=== PATIENT | female | born 1980 | race Caucasian/White ===

== ENCOUNTER 2019-06-14 09:25 | Outpatient (CLI) | payer OTHER ==
[~2019-06-14 09:25] MED LIST: DOCU-131 PO; IBUP-1222 PO; OXYC-302 PO
== END 2019-06-14 23:59 | disposition home or self-care (01) ==
LOC: CFH 09:25
PROVIDERS: ATTEND Clinical Nurse Specialist Women's Health
DX: R92.2 Inconclusive mammogram (principal); R92.1 Mammographic calcification found on diagnostic imaging of breast
CPT/HCPCS: 76642; 77066; G0279

== ENCOUNTER → 2021-01-10 | Outpatient (CLI) | payer OTHER ==
[~2021-01-10] MED LIST changes: -OXYC-302 PO; +OXYC1TAB14 PO
== END | disposition home or self-care (01) ==
LOC: CFH 15:34
PROVIDERS: ATTEND Obstetrics & Gynecology
DX: R60.0 Localized edema (principal)

== ENCOUNTER 2021-01-17 11:01 | Emergency (ER) | payer OTHER ==
[~2021-01-17] VITALS: Ht 177.8 cm; Wt 91.8 kg
--- NOTE | 2021-01-17 11:18 | NUR ---
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
[2021-01-17 11:58] LABS: BASOPHILS % (AUTO) 0 % (0-1); EOSINOPHILS % (AUTO) 0 % (1-7); LYMPHOCYTES % (AUTO) 14 % (22-44); MEAN CORPUSCULAR HGB CONC 34.5 g/dL (32.4-35.8); MEAN PLATELET VOLUME 8.2 fL (7.4-10.4); MONOCYTES % (AUTO) 7 % (2-9); NEUTROPHILS % (AUTO) 79 % (42-75); PLATELET COUNT 173 x10^3/uL (130-400); RED BLOOD COUNT 4.73 x10^6/uL (3.82-5.3); RED CELL DISTRIBUTION WIDTH 13.8 % (9.6-15.2)
[2021-01-17 12:33] LABS: ANION GAP 8 mmol/L (5-15); CALCIUM 9.1 mg/dL (8.5-10.1); CHLORIDE 108 mmol/L (98-107)
[2021-01-17 12:34] LABS: ALANINE AMINOTRANSFERASE 25 U/L (12-78); ALBUMIN 3.6 g/dL (3.4-5.0); ALKALINE PHOSPHATASE 33 U/L (45-117); BILIRUBIN,TOTAL 0.8 mg/dL (0.2-1.0); CREATININE 0.56 mg/dL (0.55-1.02); TOTAL PROTEIN 6.9 g/dL (6.4-8.2); TROPONIN I < 0.015 ng/mL (0.000-0.045)
--- NOTE | 2021-01-17 13:05 | NUR ---
vice president of software engineering note: Pt to room from lobby at this time
--- NOTE | 2021-01-17 13:16 | NUR ---
FIRST CONTACT: CP and SOB intermittent x2 months, having pain today with palpitations seen previously at [facility] for same. PT WITH STEADY GAIT TO ROOM. POSTIONED TO COMFORT IN BED AND ATTACHED TO MONITORS. VSS. CHICHO. DR. MURCIA AT BEDSIDE FOR EVALUATION. AT BEDSIDE.
[2021-01-17 14:50] VITALS: BP 117/72
--- NOTE | 2021-01-17 14:51 | NUR ---
Patient given discharge instructions and they have confirmed that they understand the instructions. Patient ambulatory with steady gait. NAD, all questions answered appropriately, denies additional needs at this time. No personal belongings left in room after discharge.
== END 2021-01-17 14:53 | disposition home or self-care (01) ==
LOC: ED 11:30
DX: R55 Syncope and collapse (principal); R07.89 Other chest pain; R42 Dizziness and giddiness; R00.0 Tachycardia, unspecified; F17.200 Nicotine dependence, unspecified, uncomplicated
CPT/HCPCS: 36415; 71045; 80053; 83735; 84443; 84484; 85025; 93005; 99285